=== PATIENT | male | born 1935 | race Caucasian/White ===

== ENCOUNTER 2017-03-02 11:14 | Day surgery (SDC) | payer MEDICARE, OTHER ==
[~2017-03-02 11:14] MED LIST: Lactated Ringers 1,000 ML IV SCH; Midazolam 1 MG/ML 2 ML SDV ONE; Propofol 200 MG/20 ML SDV ONE; Sodium Chloride 0.9% 10 ML Syringe FLUSH PRN; Sodium Chloride 0.9% 2.5 ML Syringe FLUSH PRN; fentaNYL 100 MCG/2 ML SDV ONE
--- NOTE | 2017-03-02 11:48 | PCM.PREANE ---
Preanesthetic Assessment - Anesthesia/Transfusion/Family Hx Anesthesia History: Prior Anesthesia Without Reaction Other Type of Anesthesia Reaction Comment: denies any known problem in past Family History of Anesthesia Reaction: No Transfusion History: No Prior Transfusion(s) - Review of Systems Neurological: Tremors - Physical Assessment NPO Status Date: 03/01/17 O2 Sat by Pulse Oximetry: 95 Respiratory Rate: 18 Vital Signs: Last Vital Signs Temp 35.6 C 03/02/17 11:45 Pulse 66 03/02/17 11:45 Resp 18 03/02/17 11:45 BP 125/93 H 03/02/17 11:45 Pulse Ox 95 03/02/17 11:45 Height: 1.78 m Weight: 141.067 kg ASA Class: 3 Mental Status: Alert & Oriented x3 Airway Class: Mallampati = 2 Dentition: Reports: Partial ROM/Head Extension: Full Lungs: Clear to Auscultation, Normal Respiratory Effort Cardiovascular: Regular Rate, Regular Rhythm - Allergies Allergies/Adverse Reactions: Allergies Allergy/AdvReac Type Severity Reaction Status Date / Time No Known Allergies Allergy Verified 02/27/17 13:23 - Anesthesia Plan Beta [place]: Metoprolol (has significant EDI, may need oral airway) - Acknowledgements Anesthesia Type Planned: MAC Pt an Appropriate Candidate for the Planned Anesthesia: Yes Alternatives and Risks of Anesthesia Discussed w Pt/Guardian: Yes Pt/Guardian Understands and Agrees with Anesthesia Plan: Yes PreAnesthesia Questionnaire HEENT History: Reports: Cataract, Hard of Hearing Other HEENT History: wears glasses, has upper and lower partial dentures, has bilateral hearing aides Cardiovascular History: Reports: Hypertension Other Cardiovascular History: patient reports occasion chest tightness but goes away quickly Respiratory History: Reports: Sleep Apnea Other Respiratory History: does not use CPAP Gastrointestinal History: Reports: Colon Polyp Genitourinary History: Reports: Prostate Disorder Other Genitourinary History: phimosis, urinary leakage Musculoskeletal History: Reports: Back Pain, Chronic Other Musculoskeletal History: Disk problems to low back, Benign Tremors. gets cortisone shots Neurological History: Reports: Head Trauma, Other (See Below) Other Neuro History: Essential tremor, head injury as a child Psychiatric History: Reports: None Endocrine/Metabolic History: Reports: Obesity/BMI 30+ Hematologic History: Reports: Anemia Immunologic History: Reports: None Oncologic (Cancer) History: Reports: Prostate Dermatologic History: Reports: Eczema Other Dermatologic History: Dry skin, sensitive skin - Past Surgical History HEENT Surgical History: Reports: Cataract Surgery GI Surgical History: Reports: Colonoscopy, Small Bowel Other GI Surgeries/Procedures: right Hemicolectomy Male Surgical History: Reports: Prostatectomy, Vasectomy Other Oncologic Surgeries/Procedures: prostatectomy - SUBSTANCE USE Smoking Status *Q: Former Smoker Tobacco Use Within Last Twelve Months: No Second Hand Smoke Exposure: No Days Per Week of Alcohol Use: 0 Recreational Drug Use History: No - HOME MEDS Home Medications: Home Meds Multivitamin [Multivitamins] 1 each PO DAILY 09/10/13 [History] Benazepril/Hydrochlorothiazide [Lotensin Hct 20-25 mg Tablet] 1 tab PO DAILY [History] amLODIPine Besylate [Amlodipine Besylate] 5 mg PO ACBREAKFAST 02/17/15 [History] Metoprolol Succinate 50 mg PO BID 02/27/17 [History] Zonisamide [Zonegran] 100 mg PO DAILY 02/27/17 [History] - CURRENT (IN HOUSE) MEDS Current Meds: Current Medications Lactated Ringer's (Ringers, Lactated) 1,000 mls @ 125 mls/hr IV ASDIRECTED BISHOP Last Admin: 03/02/17 11:43 Dose: 125 mls/hr Sodium Chloride (Saline Flush) 10 ml FLUSH ASDIRECTED PRN PRN Reason: Keep Vein Open Sodium Chloride (Saline Flush) 2.5 ml FLUSH ASDIRECTED PRN PRN Reason: Keep Vein Open Discontinued Medications Fentanyl (Sublimaze) Confirm Administered Dose 100 mcg .ROUTE .STK-MED ONE Stop: 03/02/17 07:19 Lidocaine HCl (Xylocaine-Mpf 1%) Confirm Administered Dose 5 ml .ROUTE .STK-MED ONE Stop: 03/02/17 07:20 Midazolam HCl (Versed 1 Mg/Ml) Confirm Administered Dose 2 mg .ROUTE .STK-MED ONE Stop: 03/02/17 07:19 Propofol (Diprivan 20 Ml) Confirm Administered Dose 200 mg .ROUTE .STK-MED ONE Stop: 03/02/17 07:19
--- NOTE | 2017-03-02 12:34 | PCM.OPNOTE ---
- General Post-Op/Procedure Note Date of Surgery/Procedure: 03/02/17 Operative Procedure(s): Colonoscopy Findings: Normal appearing anastomotic line. Proximal colon polyp at 100cm and sigmoid colon polyp at 30 cm. Pre Op Diagnosis: History of colon polyps requiring right hemicolectomy Post-Op Diagnosis: Proximal colon polyp, sigmoid colon polyp Anesthesia Technique: [facility] Primary Surgeon: Naima Winters Condition: Good
--- NOTE | 2017-03-02 12:51 | PCM.POSTAN ---
POST ANESTHESIA ASSESSMENT - MENTAL STATUS Mental Status: Alert, Oriented - RESPIRATORY Respiratory Status: Respiratory Rate WNL, Airway Patent, O2 Saturation Stable - CARDIOVASCULAR CV Status: Pulse Rate WNL, Blood Pressure Stable - GASTROINTESTINAL GI Status: No Symptoms - POST OP HYDRATION Hydration Status: Adequate & Stable
--- NOTE | 2017-03-02 12:52 | PCM48HPAN ---
Post Anesthesia Note - EVALUATION WITHIN 48HRS OF ANESTHETIC Vital Signs in Normal Range: Yes Patient Participated in Evaluation: Yes Respiratory Function Stable: Yes Airway Patent: Yes Cardiovascular Function Stable: Yes Hydration Status Stable: Yes Pain Control Satisfactory: Yes Nausea and Vomiting Control Satisfactory: Yes Mental Status Recovered: Yes
[2017-03-02 13:32] VITALS: BP 159/74
--- NOTE | 2017-03-03 17:03 | OR ---
SURGEON: YESENIA SARAVIA MD DATE OF PROCEDURE: 03/02/2017 PREOPERATIVE DIAGNOSIS: History of multiple colon polyps. POSTOPERATIVE DIAGNOSIS: Sigmoid colon polyp, proximal colon polyp. PROCEDURE PERFORMED: Diagnostic colonoscopy. INSTRUMENT USED: Olympus colonoscope. ANESTHESIA: MAC. EXTENT OF EXAM: To the small bowel colonic anastomosis. PREPARATION: Fair. LIMITATIONS: None. INDICATIONS: The patient is an 81-year-old male, who underwent a screening colonoscopy a couple of years ago, which was complicated by postoperative GI bleed. The patient was transferred to [place], where he underwent an emergent right hemicolectomy to control this bleeding. The patient was found to have multiple polyps within the right side of the colon. It is now time for the patient to have a followup colonoscopy and he has been doing well otherwise. He was cleared preoperatively to undergo procedure here. The patient and I discussed the procedure as well as expected perioperative course. I explained to him that should I discover a large polyp, I would not attempt any aggressive resections. The patient and I discussed the risks, including bleeding, infection, or damage to surrounding structures, including perforation. The patient verbalized understanding and wished to proceed. PROCEDURE IN DETAIL: The patient was brought to the endoscopy suite and placed in the left lateral decubitus position. A time-out was completed verifying the patient's name, age, date of , allergies, and procedure to be performed. Monitored anesthesia care was induced and continuous oxygen was provided via nasal cannula throughout the procedure. After adequate sedation was achieved, a digital rectal exam was performed. This exam was within normal limits. A well lubricated colonoscope was inserted in the rectum and advanced under direct visualization to the level of the colonic and small bowel anastomosis. This appeared normal and a photograph was taken. A biopsy was taken of the staple line to ensure that there was no evidence of recurrence. The scope was then fully withdrawn while examining the color, texture, anatomy, and integrity of mucosa from the cecum to the anal canal. The patient was found to have a small sessile polyp at approximately 100 cm. This was removed using a cold biopsy forceps and sent to pathology labeled as proximal colon polyp. Extra care was taken to ensure that the patient achieved adequate hemostasis. Once this was confirmed I continued my investigation. Another pedunculated polyp was found within the distal sigmoid colon at approximately 30 cm. This was easily removed using a cold biopsy forceps and sent to pathology. Again, I ensured hemostasis before continuing. The remainder of the colonoscopy was normal. The scope was brought into the rectum and retroflexed to allow visualization of the anal canal opening. This appeared normal and a photograph was taken. The scope was then straightened out and removed from the patient. Cecum to anus time was 16 minutes. The patient tolerated the procedure well and was taken to PACU in stable condition. ENDOSCOPIC DIAGNOSES: 1. Normal appearing anastomotic line. 2. Proximal colon polyp at 100 cm. 3. Sigmoid colon polyp. RECOMMENDATION: Follow up in clinic in 2 weeks. REJI RAYA /[id number]
== END 2017-03-02 13:27 | disposition home or self-care (01) ==
LOC: MW.SDS 11:14
PROVIDERS: ATTEND Surgery
DX: Z12.11 Encounter for screening for malignant neoplasm of colon (principal); D12.5 Benign neoplasm of sigmoid colon; D12.6 Benign neoplasm of colon, unspecified; Z86.010 Personal history of colon polyps; I10 Essential (primary) hypertension; E66.01 Morbid (severe) obesity due to excess calories; G47.33 Obstructive sleep apnea (adult) (pediatric); Z68.41 Body mass index [BMI] 40.0-44.9, adult; Z79.899 Other long term (current) drug therapy; Z98.890 Other specified postprocedural states; Z98.52 Vasectomy status
CPT/HCPCS: 45380; J2250; J3010; J7120; 00810; 88305; J2704

== ENCOUNTER 2018-12-24 13:42 | Emergency (ER) | payer OTHER, MEDICARE ==
[2018-12-24] MEDS ORDERED: Sodium Chloride 0.9% 10 ML Syringe FLUSH PRN (13:52)
[2018-12-24] MEDS ORDERED: Sodium Chloride 0.9% 2.5 ML Syringe FLUSH PRN (13:52)
--- NOTE | 2018-12-24 13:56 | EDM.PDOC ---
ED HPI GENERAL MEDICAL PROBLEM - General Chief Complaint: Respiratory Problem Stated Complaint: SHORTNESS OF BREATH AND WEAKNESS Time Seen by Provider: 12/24/18 13:49 - History of Present Illness INITIAL COMMENTS - FREE TEXT/NARRATIVE: HISTORY AND PHYSICAL: History of present illness: Patient's an 83-year-old white male who was sent from the [place] after he was therefore clinic appointment and noted to have abnormal lab diagnostic results. Patient has concern of generalized weakness and shortness of breath he has had occasional chest pain he somewhat poor historian he denies chest pain at this time there's been no reported fever chills nausea or vomiting Review of systems: As per history of present illness and below otherwise all systems reviewed and negative. Past medical history: As per history of present illness and as reviewed below otherwise noncontributory. Surgical history: As per history of present illness and as reviewed below otherwise noncontributory. Social history: No reported history of drug or alcohol abuse. Family history: As per history of present illness and as reviewed below otherwise noncontributory. Physical exam: HEENT: Atraumatic, normocephalic, pupils reactive, negative for conjunctival pallor or scleral icterus, mucous membranes moist, throat clear, neck supple, nontender, trachea midline. Lungs: Slightly coarse, breath sounds equal bilaterally, chest nontender. Heart: S1S2, regular, negative for clicks, rubs, or JVD. Abdomen: Soft, nondistended, nontender. Negative for masses or hepatosplenomegaly. Negative for costovertebral tenderness. Pelvis: Stable nontender. Genitourinary: Deferred. Rectal: Deferred. Extremities: Atraumatic, negative for cords or calf pain. Neurovascular unremarkable. Neuro: Awake, alert, oriented. Follows commands and moves all extremities limited grossly nonfocal exam Diagnostics: CBC CMP PT/INR lactic acid UA blood culture 2 chest x-ray EKG Therapeutics: Saline at 125 mL an hour director cardiac pulse oximetry Impression: #1 generalized weakness #2 dyspnea #3 thrombocytopenia #4 rule out leukemia Definitive disposition and diagnosis as appropriate pending reevaluation and review of above. - Related Data Allergies Allergy/AdvReac Type Severity Reaction Status Date / Time No Known Allergies Allergy Verified 12/24/18 13:49 Home Meds: Home Meds Multivitamin [Multivitamins] 1 each PO DAILY 09/10/13 [History] Benazepril/Hydrochlorothiazide [Lotensin Hct 20-25 mg Tablet] 1 tab PO DAILY [History] amLODIPine Besylate [Amlodipine Besylate] 5 mg PO ACBREAKFAST 02/17/15 [History] Metoprolol Succinate 50 mg PO BID 02/27/17 [History] Zonisamide [Zonegran] 100 mg PO DAILY 02/27/17 [History] Past Medical History HEENT History: Reports: Cataract, Hard of Hearing Other HEENT History: wears glasses, has upper and lower partial dentures, has bilateral hearing aides Cardiovascular History: Reports: Hypertension Other Cardiovascular History: patient reports occasion chest tightness but goes away quickly Respiratory History: Reports: Sleep Apnea Other Respiratory History: does not use CPAP Gastrointestinal History: Reports: Colon Polyp Genitourinary History: Reports: Prostate Disorder Other Genitourinary History: phimosis, urinary leakage Musculoskeletal History: Reports: Back Pain, Chronic Other Musculoskeletal History: Disk problems to low back, Benign Tremors. gets cortisone shots Neurological History: Reports: Head Trauma, Other (See Below) Other Neuro History: Essential tremor, head injury as a child Psychiatric History: Reports: None Endocrine/Metabolic History: Reports: Obesity/BMI 30+ Hematologic History: Reports: Anemia Immunologic History: Reports: None Oncologic (Cancer) History: Reports: Prostate Dermatologic History: Reports: Eczema Other Dermatologic History: Dry skin, sensitive skin - Past Surgical History Head Surgeries/Procedures: Reports: None HEENT Surgical History: Reports: Cataract Surgery GI Surgical History: Reports: Colonoscopy, Small Bowel Other GI Surgeries/Procedures: right Hemicolectomy Male Surgical History: Reports: Prostatectomy, Vasectomy Other Male Surgeries/Procedures: hx radiation therapy for prostate cancer Other Oncologic Surgeries/Procedures: prostatectomy ED ROS GENERAL - Review of Systems Review Of Systems: ROS reveals no pertinent complaints other than HPI. ED EXAM, GENERAL - Physical Exam Exam: See Below (See dictation) Course - Vital Signs Last Recorded V/S: Last Vital Signs Temp 36.2 C 12/24/18 13:50 Pulse 78 12/24/18 13:50 Resp 22 H 12/24/18 13:50 BP 132/71 12/24/18 13:50 Pulse Ox 95 12/24/18 13:50 - Orders/Labs/Meds Orders: Active Orders 24 hr Category Date Time Status Patient Status [ADT] Stat ADT 12/24/18 15:35 Active Cardiac Monitoring [RC] . DIRECTED Care 12/24/18 13:51 Active EKG Documentation Completion [RC] STAT Care 12/24/18 13:51 Active Oxygen Therapy, ED [RC] ASDIRECTED Care 12/24/18 13:51 Active Pulse Oximetry [RC] ASDIRECTED Care 12/24/18 13:51 Active CULTURE BLOOD [BC] Stat Lab 12/24/18 14:04 Results CULTURE BLOOD [BC] Stat Lab 12/24/18 14:12 Received Sodium Chloride 0.9% [Normal Saline] 1,000 ml Med 12/24/18 14:00 Active IV STAT Sodium Chloride 0.9% [Saline Flush] Med 12/24/18 13:52 Active 10 ml FLUSH ASDIRECTED PRN Sodium Chloride 0.9% [Saline Flush] Med 12/24/18 13:52 Active 2.5 ml FLUSH ASDIRECTED PRN Blood Culture x2 Reflex Set [OM.PC] Stat Oth 12/24/18 13:52 Ordered Saline Lock Insert [OM.PC] Stat Oth 12/24/18 13:51 Ordered Medication Orders Sodium Chloride (Normal Saline) 1,000 mls @ 125 mls/hr IV STAT BISHOP Last Admin: 12/24/18 14:17 Dose: 125 mls/hr Sodium Chloride (Saline Flush) 10 ml FLUSH ASDIRECTED PRN PRN Reason: Keep Vein Open Sodium Chloride (Saline Flush) 2.5 ml FLUSH ASDIRECTED PRN PRN Reason: Keep Vein Open Labs: Laboratory Tests 12/24/18 12/24/18 12/24/18 Range/Units 14:08 14:12 14:12 WBC 8.40 (4.0-11.0) K/uL RBC 3.97 L (4.50-5.90) M/uL Hgb 11.9 L (13.0-17.0) g/dL Hct 36.0 L (38.0-50.0) % MCV 90.7 (80.0-98.0) fL MCH 30.0 (27.0-32.0) pg MCHC 33.1 (31.0-37.0) g/dL RDW Std Deviation 63.2 H (28.0-62.0) fl RDW Coeff of Jamie 19 H (11.0-15.0) % Plt Count 61 L (150-400) K/uL Add Manual Diff YES Neutrophils % (Manual) 29 L (48.0-80.0) % Band Neutrophils % 4 % Lymphocytes % (Manual) 37 (16.0-40.0) % Monocytes % (Manual) 22 H (0.0-15.0) % Basophils % (Manual) 1 (0.0-1.5) % Metamyelocytes % 3 % Blast Cells % 4 % Nucleated RBC % 0.6 /100WBC Absolute Seg Neuts 2.4 (1.4-5.7) Band Neutrophils # 0.3 Lymphocytes # (Manual) 3.1 H (0.6-2.4) Monocytes # (Manual) 1.8 H (0.0-0.8) Basophils # (Manual) 0.1 (0.0-0.1) Absolute Metamyelocyte 0.3 Nucleated RBCs 1 % Nucleated RBCs # 0 K/uL Absolute Blast Cells 0.3 INR 1.13 ABG pH (7.35-7.45) ABG pCO2 (35-45) mmHG ABG pO2 (75-100) mmHG ABG HCO3 (22-26) mEq/L ABG Total CO2 ABG Base Excess (-2.0-2.0) Lactate (0.20-2.00) mmol/L Sodium 141 (136-148) mmol/L Potassium 4.0 (3.5-5.1) mmol/L Chloride 104 (98-107) mmol/L Carbon Dioxide 26.4 (21.0-32.0) mmol/L BUN 27 H (7.0-18.0) mg/dL Creatinine 1.3 (0.8-1.3) mg/dL Est Cr Clr Drug Dosing 45.24 mL/min Estimated GFR (MDRD) 52.9 ml/min Glucose 122 H (74-106) mg/dL Calcium 9.0 (8.5-10.1) mg/dL Total Bilirubin 1.1 H (0.2-1.0) mg/dL AST 28 (15-37) IU/L ALT 19 (14-63) IU/L Alkaline Phosphatase 97 (46-116) U/L B-Natriuretic Peptide (<100) PG/ML Total Protein 7.1 (6.4-8.2) g/dL Albumin 3.4 (3.4-5.0) g/dL Globulin 3.7 (2.6-4.0) g/dL Albumin/Globulin Ratio 0.9 (0.9-1.6) Urine Color Urine Appearance Urine pH (5.0-8.0) Ur Specific [place] (1.001-1.035) Urine Protein (NEGATIVE) mg/dL Urine Glucose (UA) (NEGATIVE) mg/dL Urine Ketones (NEGATIVE) mg/dL Urine Occult Blood (NEGATIVE) Urine Nitrite (NEGATIVE) Urine Bilirubin (NEGATIVE) Urine Ictotest Urine Urobilinogen (<2.0) EU/dL Ur Leukocyte Esterase (NEGATIVE) Urine RBC (0-2/HPF) Urine WBC (0-5/HPF) Ur Epithelial Cells (NONE-FEW) Urine Bacteria (NEGATIVE) Urine Mucus (NONE-MOD) 12/24/18 12/24/18 12/24/18 Range/Units 14:12 14:12 14:21 WBC (4.0-11.0) K/uL RBC (4.50-5.90) M/uL Hgb (13.0-17.0) g/dL Hct (38.0-50.0) % MCV (80.0-98.0) fL MCH (27.0-32.0) pg MCHC (31.0-37.0) g/dL RDW Std Deviation (28.0-62.0) fl RDW Coeff of Jamie (11.0-15.0) % Plt Count (150-400) K/uL Add Manual Diff Neutrophils % (Manual) (48.0-80.0) % Band Neutrophils % % Lymphocytes % (Manual) (16.0-40.0) % Monocytes % (Manual) (0.0-15.0) % Basophils % (Manual) (0.0-1.5) % Metamyelocytes % % Blast Cells % % Nucleated RBC % /100WBC Absolute Seg Neuts (1.4-5.7) Band Neutrophils # Lymphocytes # (Manual) (0.6-2.4) Monocytes # (Manual) (0.0-0.8) Basophils # (Manual) (0.0-0.1) Absolute Metamyelocyte Nucleated RBCs % Nucleated RBCs # K/uL Absolute Blast Cells INR ABG pH 7.526 H (7.35-7.45) ABG pCO2 35 (35-45) mmHG ABG pO2 59 L (75-100) mmHG ABG HCO3 29 H (22-26) mEq/L ABG Total CO2 25.9 ABG Base Excess 5.8 H (-2.0-2.0) Lactate 1.2 (0.20-2.00) mmol/L Sodium (136-148) mmol/L Potassium (3.5-5.1) mmol/L Chloride (98-107) mmol/L Carbon Dioxide (21.0-32.0) mmol/L BUN (7.0-18.0) mg/dL Creatinine (0.8-1.3) mg/dL Est Cr Clr Drug Dosing mL/min Estimated GFR (MDRD) ml/min Glucose (74-106) mg/dL Calcium (8.5-10.1) mg/dL Total Bilirubin (0.2-1.0) mg/dL AST (15-37) IU/L ALT (14-63) IU/L Alkaline Phosphatase (46-116) U/L B-Natriuretic Peptide 44 (<100) PG/ML Total Protein (6.4-8.2) g/dL Albumin (3.4-5.0) g/dL Globulin (2.6-4.0) g/dL Albumin/Globulin Ratio (0.9-1.6) Urine Color Urine Appearance Urine pH (5.0-8.0) Ur Specific [place] (1.001-1.035) Urine Protein (NEGATIVE) mg/dL Urine Glucose (UA) (NEGATIVE) mg/dL Urine Ketones (NEGATIVE) mg/dL Urine Occult Blood (NEGATIVE) Urine Nitrite (NEGATIVE) Urine Bilirubin (NEGATIVE) Urine Ictotest Urine Urobilinogen (<2.0) EU/dL Ur Leukocyte Esterase (NEGATIVE) Urine RBC (0-2/HPF) Urine WBC (0-5/HPF) Ur Epithelial Cells (NONE-FEW) Urine Bacteria (NEGATIVE) Urine Mucus (NONE-MOD) 12/24/18 Range/Units 15:49 WBC (4.0-11.0) K/uL RBC (4.50-5.90) M/uL Hgb (13.0-17.0) g/dL Hct (38.0-50.0) % MCV (80.0-98.0) fL MCH (27.0-32.0) pg MCHC (31.0-37.0) g/dL RDW Std Deviation (28.0-62.0) fl RDW Coeff of Jamie (11.0-15.0) % Plt Count (150-400) K/uL Add Manual Diff Neutrophils % (Manual) (48.0-80.0) % Band Neutrophils % % Lymphocytes % (Manual) (16.0-40.0) % Monocytes % (Manual) (0.0-15.0) % Basophils % (Manual) (0.0-1.5) % Metamyelocytes % % Blast Cells % % Nucleated RBC % /100WBC Absolute Seg Neuts (1.4-5.7) Band Neutrophils # Lymphocytes # (Manual) (0.6-2.4) Monocytes # (Manual) (0.0-0.8) Basophils # (Manual) (0.0-0.1) Absolute Metamyelocyte Nucleated RBCs % Nucleated RBCs # K/uL Absolute Blast Cells INR ABG pH (7.35-7.45) ABG pCO2 (35-45) mmHG ABG pO2 (75-100) mmHG ABG HCO3 (22-26) mEq/L ABG Total CO2 ABG Base Excess (-2.0-2.0) Lactate (0.20-2.00) mmol/L Sodium (136-148) mmol/L Potassium (3.5-5.1) mmol/L Chloride (98-107) mmol/L Carbon Dioxide (21.0-32.0) mmol/L BUN (7.0-18.0) mg/dL Creatinine (0.8-1.3) mg/dL Est Cr Clr Drug Dosing mL/min Estimated GFR (MDRD) ml/min Glucose (74-106) mg/dL Calcium (8.5-10.1) mg/dL Total Bilirubin (0.2-1.0) mg/dL AST (15-37) IU/L ALT (14-63) IU/L Alkaline Phosphatase (46-116) U/L B-Natriuretic Peptide (<100) PG/ML Total Protein (6.4-8.2) g/dL Albumin (3.4-5.0) g/dL Globulin (2.6-4.0) g/dL Albumin/Globulin Ratio (0.9-1.6) Urine Color DARK YELLOW Urine Appearance CLOUDY Urine pH 6.0 (5.0-8.0) Ur Specific [place] 1.025 (1.001-1.035) Urine Protein 100 H (NEGATIVE) mg/dL Urine Glucose (UA) NEGATIVE (NEGATIVE) mg/dL Urine Ketones NEGATIVE (NEGATIVE) mg/dL Urine Occult Blood LARGE H (NEGATIVE) Urine Nitrite NEGATIVE (NEGATIVE) Urine Bilirubin SMALL H (NEGATIVE) Urine Ictotest NEGATIVE Urine Urobilinogen 1.0 (<2.0) EU/dL Ur Leukocyte Esterase NEGATIVE (NEGATIVE) Urine RBC TOO NUMEROUS TO CT (0-2/HPF) Urine WBC 1-3 (0-5/HPF) Ur Epithelial Cells FEW (NONE-FEW) Urine Bacteria FEW (NEGATIVE) Urine Mucus LIGHT (NONE-MOD) Meds: Medications Generic Name Dose Route Start Last Admin Trade Name Freq PRN Reason Stop Dose Admin Sodium Chloride 1,000 mls @ 125 mls/hr 12/24/18 14:00 12/24/18 14:17 Normal Saline IV 125 mls/hr STAT BISHOP Administration Sodium Chloride 10 ml 12/24/18 13:52 Saline Flush FLUSH ASDIRECTED PRN Keep Vein Open Sodium Chloride 2.5 ml 12/24/18 13:52 Saline Flush FLUSH ASDIRECTED PRN Keep Vein Open Departure - Departure Time of Disposition: 15:33 Disposition: DC/Tfer to Acute Hospital 02 Condition: Good Clinical Impression: Weakness, Dyspnea, Thrombocytopenia - Discharge Information Referrals: PCP,Unknown [Primary Care Provider] - Forms: ED Department Discharge - My Orders Last 24 Hours: My Active Orders 12/24/18 13:51 Cardiac Monitoring [RC] . DIRECTED EKG Documentation Completion [RC] STAT Oxygen Therapy, ED [RC] ASDIRECTED Pulse Oximetry [RC] ASDIRECTED Saline Lock Insert [OM.PC] Stat 12/24/18 13:52 Sodium Chloride 0.9% [Saline Flush] 10 ml FLUSH ASDIRECTED PRN Sodium Chloride 0.9% [Saline Flush] 2.5 ml FLUSH ASDIRECTED PRN Blood Culture x2 Reflex Set [OM.PC] Stat 12/24/18 14:00 Sodium Chloride 0.9% [Normal Saline] 1,000 ml IV STAT 12/24/18 14:04 CULTURE BLOOD [BC] Stat 12/24/18 14:12 CULTURE BLOOD [BC] Stat 12/24/18 15:35 Patient Status [ADT] Stat - Assessment/Plan Last 24 Hours: My Active Orders 12/24/18 13:51 Cardiac Monitoring [RC] . DIRECTED EKG Documentation Completion [RC] STAT Oxygen Therapy, ED [RC] ASDIRECTED Pulse Oximetry [RC] ASDIRECTED Saline Lock Insert [OM.PC] Stat 12/24/18 13:52 Sodium Chloride 0.9% [Saline Flush] 10 ml FLUSH ASDIRECTED PRN Sodium Chloride 0.9% [Saline Flush] 2.5 ml FLUSH ASDIRECTED PRN Blood Culture x2 Reflex Set [OM.PC] Stat 12/24/18 14:00 Sodium Chloride 0.9% [Normal Saline] 1,000 ml IV STAT 12/24/18 14:04 CULTURE BLOOD [BC] Stat 12/24/18 14:12 CULTURE BLOOD [BC] Stat 12/24/18 15:35 Patient Status [ADT] Stat
[2018-12-24] MEDS ORDERED: Sodium Chloride 0.9% 1,000 ML IV SCH (14:00)
--- NOTE | 2018-12-24 15:19 | CR ---
EXAMINATION: Portable chest radiograph. HISTORY: Pain. FINDINGS: The trachea is midline. The cardiomediastinal silhouette is within normal limits. No pulmonary infiltrates, effusions or pneumothorax. Osseous structures appear unremarkable. IMPRESSION: No acute cardiopulmonary process.
[2018-12-24 22:10] VITALS: BP 124/56
== END 2018-12-24 17:25 ==
LOC: MW.ED 13:42
DX: R53.1 Weakness (principal); R06.02 Shortness of breath; D69.6 Thrombocytopenia, unspecified; I10 Essential (primary) hypertension; Z79.899 Other long term (current) drug therapy
CPT/HCPCS: 36415; 36600; 71045; 80053; 81001; 82803; 83605; 83880; 85025; 85610; 87040; 93005; 96360; 96361; 99285; J7040; 99284

== ENCOUNTER 2019-01-17 07:46 | Observation (INO) | payer MEDICARE, OTHER ==
[2019-01-17] MEDS ORDERED: Sodium Chloride 0.9% 2.5 ML Syringe FLUSH PRN (08:01)
[2019-01-17] MEDS ORDERED: Sodium Chloride 0.9% 10 ML Syringe FLUSH PRN (08:01)
--- NOTE | 2019-01-17 08:01 | EDM.PDOC ---
ED HPI GENERAL MEDICAL PROBLEM - General Chief Complaint: General Stated Complaint: LETHARGIC Time Seen by Provider: 01/17/19 07:56 History Limitations: Reports: Altered Mental Status - History of Present Illness INITIAL COMMENTS - FREE TEXT/NARRATIVE: History of present illness: []Patient arrived by [employer] [facility] with increasing lethargy in the past month. He' s been confused and unable to walk recently. He's not had any fevers, vomiting or diarrhea. Review of systems: As per history of present illness and below otherwise all systems reviewed and negative. Past medical history: As per history of present illness and as reviewed below otherwise noncontributory. Surgical history: As per history of present illness and as reviewed below otherwise noncontributory. Social history: No reported history of drug or alcohol abuse. Family history: As per history of present illness and as reviewed below otherwise noncontributory. Physical exam: General: Well developed, well nourished moaning in pain, pale HEENT: Atraumatic, normocephalic, pupils reactive, negative for conjunctival pallor or scleral icterus, mucous membranes dry, throat clear, neck supple, nontender, trachea midline. Lungs: Clear to auscultation, breath sounds equal bilaterally, chest nontender. Heart: S1S2, regular, negative for clicks, rubs, or JVD. Abdomen: NABS, Soft, nondistended, diffuse tenderness without rebound or guarding. Negative for masses or hepatosplenomegaly. Negative for costovertebral tenderness. Pelvis: Stable nontender. Genitourinary: Deferred. Rectal: Deferred. Extremities: Atraumatic. Neurovascular unremarkable. Neuro: Awake, Exam nonfocal. Skin:warm and dry Diagnostics: CBC, chemistry, type and screen, blood cultures, EKG chest x-ray Therapeutics: Patient was hydrated while in the ED ED Course: Patient's labs are severely abnormal and is a DNR DNI/for measures only. Dr. Dubon initially agreed for admission but then held off for possible hospice care and return to [place]. He was unable to accomplish this today so patient will be admitted for comfort care Impression: Anemia, renal failure, dehydration Prescriptions: None Plan: Admit Definitive disposition and diagnosis as appropriate pending reevaluation and review of above. - Related Data Allergies Allergy/AdvReac Type Severity Reaction Status Date / Time No Known Allergies Allergy Verified 01/17/19 07:51 Home Meds: Home Meds Multivitamin [Multivitamins] 1 each PO DAILY 09/10/13 [History] Benazepril/Hydrochlorothiazide [Lotensin Hct 20-25 mg Tablet] 1 tab PO DAILY [History] amLODIPine Besylate [Amlodipine Besylate] 5 mg PO BEDTIME 02/17/15 [History] Metoprolol Succinate 50 mg PO BID 02/27/17 [History] Acetaminophen [Tylenol Arthritis Pain] 1 tab PO Q4HR PRN 01/17/19 [History] Furosemide [Lasix] 1 tab PO DAILY 01/17/19 [History] hydroCHLOROthiazide [Hydrochlorothiazide] 1 tab PO DAILY 01/17/19 [History] Past Medical History HEENT History: Reports: Cataract, Hard of Hearing Other HEENT History: wears glasses, has upper and lower partial dentures, has bilateral hearing aides Cardiovascular History: Reports: Hypertension Other Cardiovascular History: patient reports occasion chest tightness but goes away quickly Respiratory History: Reports: Sleep Apnea Other Respiratory History: does not use CPAP Gastrointestinal History: Reports: Colon Polyp Genitourinary History: Reports: Prostate Disorder Other Genitourinary History: phimosis, urinary leakage Musculoskeletal History: Reports: Back Pain, Chronic Other Musculoskeletal History: Disk problems to low back, Benign Tremors. gets cortisone shots Neurological History: Reports: Head Trauma, Other (See Below) Other Neuro History: Essential tremor, head injury as a child Psychiatric History: Reports: None Endocrine/Metabolic History: Reports: Obesity/BMI 30+ Hematologic History: Reports: Anemia Immunologic History: Reports: None Oncologic (Cancer) History: Reports: Prostate Dermatologic History: Reports: Eczema Other Dermatologic History: Dry skin, sensitive skin - Infectious Disease History Infectious Disease History: Reports: Other (See Below) Other Infectious Disease History: pt unsure - Past Surgical History Head Surgeries/Procedures: Reports: None HEENT Surgical History: Reports: Cataract Surgery GI Surgical History: Reports: Colonoscopy, Small Bowel Other GI Surgeries/Procedures: right Hemicolectomy Male Surgical History: Reports: Prostatectomy, Vasectomy Other Male Surgeries/Procedures: hx radiation therapy for prostate cancer Other Oncologic Surgeries/Procedures: prostatectomy Social & Family History - Caffeine Use Caffeine Use: Reports: Soda ED ROS GENERAL - Review of Systems Review Of Systems: See Below ED EXAM, GENERAL - Physical Exam Exam: See Below Course - Vital Signs Last Recorded V/S: Last Vital Signs Temp 97.2 F 01/17/19 11:31 Pulse 74 01/17/19 11:31 Resp 22 H 01/17/19 11:31 BP 95/50 L 01/17/19 11:31 Pulse Ox 95 01/17/19 10:53 - Orders/Labs/Meds Orders: Active Orders 24 hr Category Date Time Status EKG Documentation Completion [RC] STAT Care 01/17/19 08:01 Active CULTURE BLOOD [BC] Stat Lab 01/17/19 08:20 Received CULTURE BLOOD [BC] Stat Lab 01/17/19 08:35 Received RED BLOOD CELLS LP [BBK] Stat Lab 01/17/19 09:16 Results TYPE AND SCREEN [BBK] Stat Lab 01/17/19 09:16 Results Sodium Chloride 0.9% [Saline Flush] Med 01/17/19 08:01 Active 10 ml FLUSH ASDIRECTED PRN Sodium Chloride 0.9% [Saline Flush] Med 01/17/19 08:01 Active 2.5 ml FLUSH ASDIRECTED PRN Blood Culture x2 Reflex Set [OM.PC] Stat Oth 01/17/19 08:01 Ordered Saline Lock Insert [OM.PC] Stat Oth 01/17/19 08:01 Ordered Medication Orders Hyoscyamine (Hyomax-Sl) 0.125 mg SL Q4H PRN PRN Reason: secretions Lorazepam (Ativan) 1 mg PO Q4H PRN PRN Reason: anxiety/agitation Morphine Sulfate (Morphine 10 Mg/0.5 Ml Oral Syringe) 5 mg SL Q1H PRN PRN Reason: pain/SOB/restlessness Morphine Sulfate (Morphine) 4 mg IVPUSH Q2H PRN PRN Reason: severe pain, agitation Last Admin: 01/17/19 12:59 Dose: 4 mg Ondansetron HCl (Zofran) 4 mg IVPUSH Q4H PRN PRN Reason: Nausea Sodium Chloride (Saline Flush) 10 ml FLUSH ASDIRECTED PRN PRN Reason: Keep Vein Open Last Admin: 01/17/19 08:42 Dose: 10 ml Sodium Chloride (Saline Flush) 2.5 ml FLUSH ASDIRECTED PRN PRN Reason: Keep Vein Open Last Admin: 01/17/19 08:42 Dose: 2.5 ml Labs: Laboratory Tests 01/17/19 01/17/19 01/17/19 Range/Units 08:20 08:20 08:20 WBC 8.74 (4.0-11.0) K/uL RBC 2.09 L (4.50-5.90) M/uL Hgb 6.0 L (13.0-17.0) g/dL Hct 18.5 L (38.0-50.0) % MCV 88.5 (80.0-98.0) fL MCH 28.7 (27.0-32.0) pg MCHC 32.4 (31.0-37.0) g/dL RDW Std Deviation 63.1 H (28.0-62.0) fl RDW Coeff of Jamie 20 H (11.0-15.0) % Plt Count 43 L (150-400) K/uL MPV 10.40 (7.40-12.00) fL Add Manual Diff YES Neutrophils % (Manual) 37 L (48.0-80.0) % Band Neutrophils % 7 % Lymphocytes % (Manual) 31 (16.0-40.0) % Monocytes % (Manual) 15 (0.0-15.0) % Metamyelocytes % 3 % Myelocytes % 1 % Blast Cells % 6 % Nucleated RBC % 0.0 /100WBC Absolute Seg Neuts 3.2 (1.4-5.7) Band Neutrophils # 0.6 Lymphocytes # (Manual) 2.7 H (0.6-2.4) Monocytes # (Manual) 1.3 H (0.0-0.8) Absolute Metamyelocyte 0.3 Absolute Myelocytes 0.1 Nucleated RBCs # 0 K/uL Absolute Blast Cells 0.5 Platelet Estimate DECREASED Lactate 1.4 (0.20-2.00) mmol/L Sodium 141 (136-148) mmol/L Potassium 4.8 (3.5-5.1) mmol/L Chloride 102 (98-107) mmol/L Carbon Dioxide 21.4 (21.0-32.0) mmol/L BUN 204 H (7.0-18.0) mg/dL Creatinine 5.3 H (0.8-1.3) mg/dL Est Cr Clr Drug Dosing TNP Estimated GFR (MDRD) 10.4 ml/min Glucose 161 H (74-106) mg/dL Calcium 8.6 (8.5-10.1) mg/dL Total Bilirubin 0.8 (0.2-1.0) mg/dL AST 39 H (15-37) IU/L ALT 18 (14-63) IU/L Alkaline Phosphatase 104 (46-116) U/L Total Protein 7.0 (6.4-8.2) g/dL Albumin 3.0 L (3.4-5.0) g/dL Globulin 4.0 (2.6-4.0) g/dL Albumin/Globulin Ratio 0.8 L (0.9-1.6) Blood Type Antibody Screen Crossmatch 01/17/19 Range/Units 09:16 WBC (4.0-11.0) K/uL RBC (4.50-5.90) M/uL Hgb (13.0-17.0) g/dL Hct (38.0-50.0) % MCV (80.0-98.0) fL MCH (27.0-32.0) pg MCHC (31.0-37.0) g/dL RDW Std Deviation (28.0-62.0) fl RDW Coeff of Jamie (11.0-15.0) % Plt Count (150-400) K/uL MPV (7.40-12.00) fL Add Manual Diff Neutrophils % (Manual) (48.0-80.0) % Band Neutrophils % % Lymphocytes % (Manual) (16.0-40.0) % Monocytes % (Manual) (0.0-15.0) % Metamyelocytes % % Myelocytes % % Blast Cells % % Nucleated RBC % /100WBC Absolute Seg Neuts (1.4-5.7) Band Neutrophils # Lymphocytes # (Manual) (0.6-2.4) Monocytes # (Manual) (0.0-0.8) Absolute Metamyelocyte Absolute Myelocytes Nucleated RBCs # K/uL Absolute Blast Cells Platelet Estimate Lactate (0.20-2.00) mmol/L Sodium (136-148) mmol/L Potassium (3.5-5.1) mmol/L Chloride (98-107) mmol/L Carbon Dioxide (21.0-32.0) mmol/L BUN (7.0-18.0) mg/dL Creatinine (0.8-1.3) mg/dL Est Cr Clr Drug Dosing Estimated GFR (MDRD) ml/min Glucose (74-106) mg/dL Calcium (8.5-10.1) mg/dL Total Bilirubin (0.2-1.0) mg/dL AST (15-37) IU/L ALT (14-63) IU/L Alkaline Phosphatase (46-116) U/L Total Protein (6.4-8.2) g/dL Albumin (3.4-5.0) g/dL Globulin (2.6-4.0) g/dL Albumin/Globulin Ratio (0.9-1.6) Blood Type O POSITIVE Antibody Screen NEGATIVE Crossmatch See Detail Meds: Medications Generic Name Dose Route Start Last Admin Trade Name Freq PRN Reason Stop Dose Admin Hyoscyamine 0.125 mg 01/17/19 11:39 Hyomax-Sl SL Q4H PRN secretions Lorazepam 1 mg 01/17/19 11:39 Ativan PO Q4H PRN anxiety/agitation Morphine Sulfate 5 mg 01/17/19 11:39 Morphine 10 Mg/0.5 Ml Oral Syringe SL Q1H PRN pain/SOB/restlessness Morphine Sulfate 4 mg 01/17/19 12:06 01/17/19 12:59 Morphine IVPUSH 4 mg Q2H PRN Administration severe pain, agitation Ondansetron HCl 4 mg 01/17/19 11:39 Zofran IVPUSH Q4H PRN Nausea Sodium Chloride 10 ml 01/17/19 08:01 01/17/19 08:42 Saline Flush FLUSH 10 ml ASDIRECTED PRN Administration Keep Vein Open Sodium Chloride 2.5 ml 01/17/19 08:01 01/17/19 08:42 Saline Flush FLUSH 2.5 ml ASDIRECTED PRN Administration Keep Vein Open Discontinued Medications Generic Name Dose Route Start Last Admin Trade Name Freq PRN Reason Stop Dose Admin Fentanyl 25 mcg 01/17/19 08:10 01/17/19 08:41 Sublimaze IVPUSH 01/17/19 08:11 25 mcg ONETIME ONE Administration Fentanyl 25 mcg 01/17/19 10:13 01/17/19 10:21 Fentanyl IVPUSH 01/17/19 10:14 Not Given ONETIME ONE Fentanyl 25 mcg 01/17/19 10:16 01/17/19 10:20 Sublimaze IVPUSH 01/17/19 10:17 25 mcg ONETIME ONE Administration Sodium Chloride 1,000 mls @ 999 mls/hr 01/17/19 08:08 01/17/19 08:13 Normal Saline IV 01/17/19 09:08 999 mls/hr .Bolus ONE Administration Morphine Sulfate 2 mg 01/17/19 10:54 01/17/19 11:03 Morphine IVPUSH 01/17/19 10:55 2 mg ONETIME ONE Administration Ondansetron HCl 4 mg 01/17/19 08:10 01/17/19 08:41 Zofran IVPUSH 01/17/19 08:11 4 mg ONETIME ONE Administration Departure - Departure Time of Disposition: 11:00 Disposition: Refer to Observation Clinical Impression: Anemia Qualifiers: Anemia type: unspecified type Qualified Code(s): D64.9 - Anemia, unspecified - Discharge Information *PRESCRIPTION DRUG MONITORING PROGRAM REVIEWED*: Not Applicable *COPY OF PRESCRIPTION DRUG MONITORING REPORT IN PATIENT FAITH: Not Applicable - My Orders Last 24 Hours: My Active Orders 01/17/19 08:01 EKG Documentation Completion [RC] STAT Sodium Chloride 0.9% [Saline Flush] 10 ml FLUSH ASDIRECTED PRN Sodium Chloride 0.9% [Saline Flush] 2.5 ml FLUSH ASDIRECTED PRN Blood Culture x2 Reflex Set [OM.PC] Stat Saline Lock Insert [OM.PC] Stat 01/17/19 08:20 CULTURE BLOOD [BC] Stat 01/17/19 08:35 CULTURE BLOOD [BC] Stat 01/17/19 09:16 RED BLOOD CELLS LP [BBK] Stat TYPE AND SCREEN [BBK] Stat - Assessment/Plan Last 24 Hours: My Active Orders 01/17/19 08:01 EKG Documentation Completion [RC] STAT Sodium Chloride 0.9% [Saline Flush] 10 ml FLUSH ASDIRECTED PRN Sodium Chloride 0.9% [Saline Flush] 2.5 ml FLUSH ASDIRECTED PRN Blood Culture x2 Reflex Set [OM.PC] Stat Saline Lock Insert [OM.PC] Stat 01/17/19 08:20 CULTURE BLOOD [BC] Stat 01/17/19 08:35 CULTURE BLOOD [BC] Stat 01/17/19 09:16 RED BLOOD CELLS LP [BBK] Stat TYPE AND SCREEN [BBK] Stat
[2019-01-17] MEDS ORDERED: Sodium Chloride 0.9% 1,000 ML IV ONE (08:08)
[2019-01-17] MEDS ORDERED: fentaNYL 100 MCG/2 ML SDV IVPUSH ONE ×2 (08:10→10:16)
[2019-01-17] MEDS ORDERED: Ondansetron 4 MG/2 ML SDV IVPUSH ONE (08:10)
[2019-01-17 08:52] LABS: CHLORIDE,CL 102 mmol/L (98-107); SODIUM,NA 141 mmol/L (136-148)
--- NOTE | 2019-01-17 09:31 | CR ---
INDICATION: Chest pain. Shortness breath. COMPARISON: Portable chest dated 12/24/2018. TECHNIQUE: Portable chest performed at 8:54 a.m. FINDINGS: As compared to the recent exam dated 12/24/2018 there has been development of pulmonary vascular congestion and increase in size of the cardiac silhouette. There is no evidence of pleural fluid. There is no evidence of pneumothorax. No focal infiltrates are identified. IMPRESSION: Developing CHF. Dictated by Bryson Zurita MD @ Jan 17 2019 9:28AM Signed by Dr. Bryson Zurita @ Jan 17 2019 9:30AM
[2019-01-17] MEDS ORDERED: fentaNYL 50 MCG/ML SDV IVPUSH ONE (10:13)
[2019-01-17] MEDS ORDERED: Morphine 2 MG/ML Syringe IVPUSH ONE (10:54)
[2019-01-17] MEDS ORDERED: Ondansetron 4 MG/2 ML SDV IVPUSH PRN (11:39)
[2019-01-17] MEDS ORDERED: Hyoscyamine 0.125 MG Tab.SL SL PRN (11:39)
[2019-01-17] MEDS ORDERED: LORazepam Conc Solution 2 MG/ML 30 ML Bottle PO PRN (11:39)
--- NOTE | 2019-01-17 11:52 | PCM.HP.2 ---
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 Source of Information: Family, Old Records History Limitations: Reports: Altered Mental Status - History of Present Illness Initial Comments - Free Text/Narative: This 83 year old male with pmh of HTN and benign tremor presented from [facility] with complaints of severe weakness and confusion. Kalyan is confused and lethargic and unable to participate in interview. I spoke with , Linda. She reports in December she started seeing a rapid decline in health. She has been seeing [facility] Valles [facility] and was seen in the ED here December 24 and was transferred to [place] due to severity of illness and needs. According to records anemia was noted peripheral blood smear was obtained which revealed increased circulating myeloid lineage blasts, recommending hematology and oncology consultation. He was scheduled to see them here in [place] today. In the ED today no leukocytosis noted, RBC 2.09, hgb 6.0, HCT 18.5, platelets 43 ,000, neutrophils 37%. K+ 4.8 BUN 205, Cr 5.3. He was noted to be hypotensive, dyspneic and confused on arrival. CXR revealed cardiomegaly with suspected CHF. Dr Romero consulted for admission due to anemia. 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 We recommended palliative measures at this time due to poor prognosis. I spoke with PCP, Dr Rodriguez, who also discussed care with family in the ED. - Related Data Allergies/Adverse Reactions: Allergies Allergy/AdvReac Type Severity Reaction Status Date / Time No Known Allergies Allergy Verified 01/17/19 07:51 Home Medications: Home Meds Multivitamin [Multivitamins] 1 each PO DAILY 09/10/13 [History] Benazepril/Hydrochlorothiazide [Lotensin Hct 20-25 mg Tablet] 1 tab PO DAILY [History] amLODIPine Besylate [Amlodipine Besylate] 5 mg PO BEDTIME 02/17/15 [History] Metoprolol Succinate 50 mg PO BID 02/27/17 [History] Acetaminophen [Tylenol Arthritis Pain] 1 tab PO Q4HR PRN 01/17/19 [History] Furosemide [Lasix] 1 tab PO DAILY 01/17/19 [History] hydroCHLOROthiazide [Hydrochlorothiazide] 1 tab PO DAILY 01/17/19 [History] Past Medical History HEENT History: Reports: Cataract, Hard of Hearing Other HEENT History: wears glasses, has upper and lower partial dentures, has bilateral hearing aides Cardiovascular History: Reports: Hypertension. Denies: CAD Respiratory History: Reports: Sleep Apnea Other Respiratory History: does not use CPAP Gastrointestinal History: Reports: Colon Polyp Genitourinary History: Reports: Prostate Disorder Other Genitourinary History: phimosis, urinary leakage Musculoskeletal History: Reports: Back Pain, Chronic Other Musculoskeletal History: Disk problems to low back, Benign Tremors. gets cortisone shots Neurological History: Reports: Head Trauma, Other (See Below) Other Neuro History: Essential tremor, head injury as a child Psychiatric History: Reports: Depression Endocrine/Metabolic History: Reports: Obesity/BMI 30+. Denies: Diabetes, Type II Hematologic History: Reports: Anemia Immunologic History: Reports: None Oncologic (Cancer) History: Reports: Colon, Prostate Dermatologic History: Reports: Eczema Other Dermatologic History: Dry skin, sensitive skin - Infectious Disease History Infectious Disease History: Reports: Other (See Below) Other Infectious Disease History: pt unsure - Past Surgical History Head Surgeries/Procedures: Reports: None HEENT Surgical History: Reports: Cataract Surgery GI Surgical History: Reports: Colon, Colonoscopy, Small Bowel Male Surgical History: Reports: Prostatectomy, Vasectomy Other Male Surgeries/Procedures: hx radiation therapy for prostate cancer Other Oncologic Surgeries/Procedures: prostatectomy Social & Family History - Family History Family Medical History: Noncontributory - Tobacco Use Smoking Status *Q: Never Smoker - Caffeine Use Caffeine Use: Reports: Soda - Recreational Drug Use Recreational Drug Use: No - Living Situation & Occupation Living situation: Reports: , Extended Care Facility (recently was placed at [facility] due to declining condition) H&P Review of Systems - Review of Systems: Review Of Systems: Unable To Obtain (per , patient lethargic and confused) General: Reports: Weakness Pulmonary: Reports: Shortness of Breath Neurological: Reports: Confusion, Trouble Speaking, Difficulty Walking, Weakness Hematologic/Lymphatic: Reports: Anemia, Easy Bruising Exam - Exam Exam: See Below - Vital Signs Vital Signs: Last Vital Signs Temp 97.2 F 01/17/19 11:31 Pulse 74 01/17/19 11:31 Resp 22 H 01/17/19 11:31 BP 95/50 L 01/17/19 11:31 Pulse Ox 95 01/17/19 10:53 Weight: 131.542 kg - Exam General: Lethargic, Obtunded, Other (pallor, patient moaning in pain) HEENT: No: Mucosa Moist & [place] (pale) Lungs: Decreased Breath Sounds (bibasilar), Crackles Cardiovascular: Regular Rate, Regular Rhythm (distant heart sounds). No: Systolic Murmur GI/Abdominal Exam: Normal Bowel Sounds, Soft, Tender (patient opens eyes and grimaces with pain upon palpation) Back Exam: Normal Inspection, Full Range of Motion (noted grimacing and palpation of back) Extremities: Normal Inspection, Normal Range of Motion, Non-Tender. No: Normal Capillary Refill (extreme paleness with lengthened cap refill, no mottling noted.) Neuro Extensive - Mental Status: No: Alert, Oriented x3, Normal Mood/Affect Psychiatric: Other (obtunded). No: Normal Mood, Anxious, Agitated - Patient Data Lab Results Last 24 hrs: Laboratory Results - last 24 hr 01/17/19 01/17/19 01/17/19 Range/Units 08:20 08:20 08:20 WBC 8.74 (4.0-11.0) K/uL RBC 2.09 L (4.50-5.90) M/uL Hgb 6.0 L (13.0-17.0) g/dL Hct 18.5 L (38.0-50.0) % MCV 88.5 (80.0-98.0) fL MCH 28.7 (27.0-32.0) pg MCHC 32.4 (31.0-37.0) g/dL RDW Std Deviation 63.1 H (28.0-62.0) fl RDW Coeff of Jamie 20 H (11.0-15.0) % Plt Count 43 L (150-400) K/uL MPV 10.40 (7.40-12.00) fL Add Manual Diff YES Neutrophils % (Manual) 37 L (48.0-80.0) % Band Neutrophils % 7 % Lymphocytes % (Manual) 31 (16.0-40.0) % Monocytes % (Manual) 15 (0.0-15.0) % Metamyelocytes % 3 % Myelocytes % 1 % Blast Cells % 6 % Nucleated RBC % 0.0 /100WBC Absolute Seg Neuts 3.2 (1.4-5.7) Band Neutrophils # 0.6 Lymphocytes # (Manual) 2.7 H (0.6-2.4) Monocytes # (Manual) 1.3 H (0.0-0.8) Absolute Metamyelocyte 0.3 Absolute Myelocytes 0.1 Nucleated RBCs # 0 K/uL Absolute Blast Cells 0.5 Platelet Estimate DECREASED Lactate 1.4 (0.20-2.00) mmol/L Sodium 141 (136-148) mmol/L Potassium 4.8 (3.5-5.1) mmol/L Chloride 102 (98-107) mmol/L Carbon Dioxide 21.4 (21.0-32.0) mmol/L BUN 204 H (7.0-18.0) mg/dL Creatinine 5.3 H (0.8-1.3) mg/dL Est Cr Clr Drug Dosing TNP Estimated GFR (MDRD) 10.4 ml/min Glucose 161 H (74-106) mg/dL Calcium 8.6 (8.5-10.1) mg/dL Total Bilirubin 0.8 (0.2-1.0) mg/dL AST 39 H (15-37) IU/L ALT 18 (14-63) IU/L Alkaline Phosphatase 104 (46-116) U/L Total Protein 7.0 (6.4-8.2) g/dL Albumin 3.0 L (3.4-5.0) g/dL Globulin 4.0 (2.6-4.0) g/dL Albumin/Globulin Ratio 0.8 L (0.9-1.6) Blood Type Antibody Screen Crossmatch 01/17/19 Range/Units 09:16 WBC (4.0-11.0) K/uL RBC (4.50-5.90) M/uL Hgb (13.0-17.0) g/dL Hct (38.0-50.0) % MCV (80.0-98.0) fL MCH (27.0-32.0) pg MCHC (31.0-37.0) g/dL RDW Std Deviation (28.0-62.0) fl RDW Coeff of Jamie (11.0-15.0) % Plt Count (150-400) K/uL MPV (7.40-12.00) fL Add Manual Diff Neutrophils % (Manual) (48.0-80.0) % Band Neutrophils % % Lymphocytes % (Manual) (16.0-40.0) % Monocytes % (Manual) (0.0-15.0) % Metamyelocytes % % Myelocytes % % Blast Cells % % Nucleated RBC % /100WBC Absolute Seg Neuts (1.4-5.7) Band Neutrophils # Lymphocytes # (Manual) (0.6-2.4) Monocytes # (Manual) (0.0-0.8) Absolute Metamyelocyte Absolute Myelocytes Nucleated RBCs # K/uL Absolute Blast Cells Platelet Estimate Lactate (0.20-2.00) mmol/L Sodium (136-148) mmol/L Potassium (3.5-5.1) mmol/L Chloride (98-107) mmol/L Carbon Dioxide (21.0-32.0) mmol/L BUN (7.0-18.0) mg/dL Creatinine (0.8-1.3) mg/dL Est Cr Clr Drug Dosing Estimated GFR (MDRD) ml/min Glucose (74-106) mg/dL Calcium (8.5-10.1) mg/dL Total Bilirubin (0.2-1.0) mg/dL AST (15-37) IU/L ALT (14-63) IU/L Alkaline Phosphatase (46-116) U/L Total Protein (6.4-8.2) g/dL Albumin (3.4-5.0) g/dL Globulin (2.6-4.0) g/dL Albumin/Globulin Ratio (0.9-1.6) Blood Type O POSITIVE Antibody Screen NEGATIVE Crossmatch See Detail Result Diagrams: 01/17/19 08:20 01/17/19 08:20 - Problem List (1) Palliative care status SNOMED Code(s): 770554029 ICD Code: Z51.5 - ENCOUNTER FOR PALLIATIVE CARE Status: Acute Current Visit: Yes (2) Multisystem organ failure SNOMED Code(s): 48571412 ICD Code: LMG1984 - Status: Acute Current Visit: Yes (3) Acute respiratory failure with hypoxia SNOMED Code(s): 77880955, 692242494 ICD Code: J96.01 - ACUTE RESPIRATORY FAILURE WITH HYPOXIA Status: Acute Current Visit: Yes (4) Leukemia SNOMED Code(s): 28820501 ICD Code: C95.90 - LEUKEMIA, UNSPECIFIED NOT HAVING ACHIEVED REMISSION Status: Acute Current Visit: Yes Qualifiers: Leukemia type: unspecified (5) Anemia SNOMED Code(s): 261101117 ICD Code: D64.9 - ANEMIA, UNSPECIFIED Status: Acute Current Visit: Yes (6) Thrombocytopenia SNOMED Code(s): 665891888 ICD Code: D69.6 - THROMBOCYTOPENIA, UNSPECIFIED Status: Acute Current Visit: No (7) HTN (hypertension) SNOMED Code(s): 85636961 ICD Code: I10 - ESSENTIAL (PRIMARY) HYPERTENSION Status: Chronic Current Visit: Yes (8) History of colon cancer SNOMED Code(s): 527101085 ICD Code: Z85.038 - PERSONAL HISTORY OF MALIGNANT NEOPLASM OF LARGE INTESTINE Status: Chronic Current Visit: Yes (9) Hx of malignant neoplasm of prostate SNOMED Code(s): 840291202 ICD Code: Z85.46 - PERSONAL HISTORY OF MALIGNANT NEOPLASM OF PROSTATE Status: Chronic Current Visit: Yes (10) EDI (obstructive sleep apnea) SNOMED Code(s): 68124863 ICD Code: G47.33 - OBSTRUCTIVE SLEEP APNEA (ADULT) (PEDIATRIC) Status: Chronic Current Visit: Yes (11) BPH (benign prostatic hyperplasia) SNOMED Code(s): 464760478 ICD Code: N40.0 - BENIGN PROSTATIC HYPERPLASIA WITHOUT LOWER URINRY TRACT SYMP Status: Chronic Current Visit: Yes (12) Protein calorie malnutrition SNOMED Code(s): 430819016 ICD Code: E46 - UNSPECIFIED PROTEIN-CALORIE MALNUTRITION Status: Acute Current Visit: Yes Problem List Initiated/Reviewed/Updated: Yes Orders Last 24hrs: Active Orders 24 hr Category Date Time Status Patient Status [ADT] Stat ADT 01/17/19 09:19 Active Communication Order [RC] ROUTINE Care 01/17/19 11:47 Ordered EKG Documentation Completion [RC] STAT Care 01/17/19 08:01 Active Tracy Catheter Insertion [Insert Urinary Catheter] [OM. Care 01/17/19 12:00 Ordered PC] Q24H Oxygen Therapy [RC] PRN Care 01/17/19 11:39 Ordered Urinary Catheter Assessment [RC] ASDIRECTED Care 01/17/19 11:46 Ordered Regular Diet [DIET] Diet 01/17/19 Lunch Ordered CULTURE BLOOD [BC] Stat Lab 01/17/19 08:20 Received CULTURE BLOOD [BC] Stat Lab 01/17/19 08:35 Received RED BLOOD CELLS LP [BBK] Stat Lab 01/17/19 09:16 Results TYPE AND SCREEN [BBK] Stat Lab 01/17/19 09:16 Results Hyoscyamine [Hyomax-SL] Med 01/17/19 11:39 Ordered 0.125 mg SL Q4H PRN LORazepam [Ativan] Med 01/17/19 11:39 Ordered 1 mg PO Q4H PRN Morphine [Morphine 20 MG/ML Soln] Med 01/17/19 11:39 Ordered 5 mg SL Q1H PRN Ondansetron [Zofran] Med 01/17/19 11:39 Ordered 4 mg IVPUSH Q4H PRN Sodium Chloride 0.9% [Saline Flush] Med 01/17/19 08:01 Active 10 ml FLUSH ASDIRECTED PRN Sodium Chloride 0.9% [Saline Flush] Med 01/17/19 08:01 Active 2.5 ml FLUSH ASDIRECTED PRN Blood Culture x2 Reflex Set [OM.PC] Stat Oth 01/17/19 08:01 Ordered Comfort Measures [OM.PC] Routine Oth 01/17/19 11:46 Ordered Saline Lock Insert [OM.PC] Stat Oth 01/17/19 08:01 Ordered Resuscitation Status Routine Resus Stat 01/17/19 11:39 Ordered Medication Orders Hyoscyamine (Hyomax-Sl) 0.125 mg SL Q4H PRN PRN Reason: secretions Lorazepam (Ativan) 1 mg PO Q4H PRN PRN Reason: anxiety/agitation Morphine Sulfate (Morphine 20 Mg/Ml Soln) 5 mg SL Q1H PRN PRN Reason: pain/SOB/restlessness Ondansetron HCl (Zofran) 4 mg IVPUSH Q4H PRN PRN Reason: Nausea Sodium Chloride (Saline Flush) 10 ml FLUSH ASDIRECTED PRN PRN Reason: Keep Vein Open Last Admin: 01/17/19 08:42 Dose: 10 ml Sodium Chloride (Saline Flush) 2.5 ml FLUSH ASDIRECTED PRN PRN Reason: Keep Vein Open Last Admin: 01/17/19 08:42 Dose: 2.5 ml Assessment/Plan Comment:: This 83 year old male admitted for multisystem organ failure, 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 We will admit for observation. Hospice consult is in place and we will be working on return to [facility] tomorrow on Hospice. Currently, we will have Morphine and Ativan available PRN for pain, dyspnea or agitation. Hyomax SL for secretions PRN. Tracy catheter to be placed for comfort , discussed with family and they agree with this. - Mortality Measure Prognosis:: Poor <Koby Romero - Last Filed: 01/17/19 17:13> H&P History of Present Illness - General Admit Problem/Dx: Admission Diagnosis/Problem Admission Diagnosis/Problem Anemia I have examined the patient independently of Elizabeth Back CNP. I have discussed the case with her. I have reviewed and agree with the examination and plan as outlined by her. Please see orders. Exam - Vital Signs Vital Signs: Last Vital Signs Temp 36.2 C 01/17/19 11:31 Pulse 74 01/17/19 11:31 Resp 22 H 01/17/19 11:31 BP 95/50 L 01/17/19 11:31 Pulse Ox 95 01/17/19 10:53 - Patient Data Lab Results Last 24 hrs: Laboratory Results - last 24 hr 01/17/19 01/17/19 01/17/19 Range/Units 08:20 08:20 08:20 WBC 8.74 (4.0-11.0) K/uL RBC 2.09 L (4.50-5.90) M/uL Hgb 6.0 L (13.0-17.0) g/dL Hct 18.5 L (38.0-50.0) % MCV 88.5 (80.0-98.0) fL MCH 28.7 (27.0-32.0) pg MCHC 32.4 (31.0-37.0) g/dL RDW Std Deviation 63.1 H (28.0-62.0) fl RDW Coeff of Jamie 20 H (11.0-15.0) % Plt Count 43 L (150-400) K/uL MPV 10.40 (7.40-12.00) fL Add Manual Diff YES Neutrophils % (Manual) 37 L (48.0-80.0) % Band Neutrophils % 7 % Lymphocytes % (Manual) 31 (16.0-40.0) % Monocytes % (Manual) 15 (0.0-15.0) % Metamyelocytes % 3 % Myelocytes % 1 % Blast Cells % 6 % Nucleated RBC % 0.0 /100WBC Absolute Seg Neuts 3.2 (1.4-5.7) Band Neutrophils # 0.6 Lymphocytes # (Manual) 2.7 H (0.6-2.4) Monocytes # (Manual) 1.3 H (0.0-0.8) Absolute Metamyelocyte 0.3 Absolute Myelocytes 0.1 Nucleated RBCs # 0 K/uL Absolute Blast Cells 0.5 Platelet Estimate DECREASED Lactate 1.4 (0.20-2.00) mmol/L Sodium 141 (136-148) mmol/L Potassium 4.8 (3.5-5.1) mmol/L Chloride 102 (98-107) mmol/L Carbon Dioxide 21.4 (21.0-32.0) mmol/L BUN 204 H (7.0-18.0) mg/dL Creatinine 5.3 H (0.8-1.3) mg/dL Est Cr Clr Drug Dosing TNP Estimated GFR (MDRD) 10.4 ml/min Glucose 161 H (74-106) mg/dL Calcium 8.6 (8.5-10.1) mg/dL Total Bilirubin 0.8 (0.2-1.0) mg/dL AST 39 H (15-37) IU/L ALT 18 (14-63) IU/L Alkaline Phosphatase 104 (46-116) U/L Total Protein 7.0 (6.4-8.2) g/dL Albumin 3.0 L (3.4-5.0) g/dL Globulin 4.0 (2.6-4.0) g/dL Albumin/Globulin Ratio 0.8 L (0.9-1.6) Blood Type Antibody Screen Crossmatch 01/17/19 Range/Units 09:16 WBC (4.0-11.0) K/uL RBC (4.50-5.90) M/uL Hgb (13.0-17.0) g/dL Hct (38.0-50.0) % MCV (80.0-98.0) fL MCH (27.0-32.0) pg MCHC (31.0-37.0) g/dL RDW Std Deviation (28.0-62.0) fl RDW Coeff of Jamie (11.0-15.0) % Plt Count (150-400) K/uL MPV (7.40-12.00) fL Add Manual Diff Neutrophils % (Manual) (48.0-80.0) % Band Neutrophils % % Lymphocytes % (Manual) (16.0-40.0) % Monocytes % (Manual) (0.0-15.0) % Metamyelocytes % % Myelocytes % % Blast Cells % % Nucleated RBC % /100WBC Absolute Seg Neuts (1.4-5.7) Band Neutrophils # Lymphocytes # (Manual) (0.6-2.4) Monocytes # (Manual) (0.0-0.8) Absolute Metamyelocyte Absolute Myelocytes Nucleated RBCs # K/uL Absolute Blast Cells Platelet Estimate Lactate (0.20-2.00) mmol/L Sodium (136-148) mmol/L Potassium (3.5-5.1) mmol/L Chloride (98-107) mmol/L Carbon Dioxide (21.0-32.0) mmol/L BUN (7.0-18.0) mg/dL Creatinine (0.8-1.3) mg/dL Est Cr Clr Drug Dosing Estimated GFR (MDRD) ml/min Glucose (74-106) mg/dL Calcium (8.5-10.1) mg/dL Total Bilirubin (0.2-1.0) mg/dL AST (15-37) IU/L ALT (14-63) IU/L Alkaline Phosphatase (46-116) U/L Total Protein (6.4-8.2) g/dL Albumin (3.4-5.0) g/dL Globulin (2.6-4.0) g/dL Albumin/Globulin Ratio (0.9-1.6) Blood Type O POSITIVE Antibody Screen NEGATIVE Crossmatch See Detail Result Diagrams: 01/17/19 08:20 01/17/19 08:20 Orders Last 24hrs: Active Orders 24 hr Category Date Time Status Patient Status [ADT] Stat ADT 01/17/19 09:19 Active Communication Order [RC] ROUTINE Care 01/17/19 11:47 Active EKG Documentation Completion [RC] STAT Care 01/17/19 08:01 Active Tracy Catheter Insertion [Insert Urinary Catheter] [OM. Care 01/17/19 12:00 Ordered PC] Q24H Oxygen Therapy [RC] PRN Care 01/17/19 11:39 Active Urinary Catheter Assessment [RC] ASDIRECTED Care 01/17/19 11:46 Active Consult to Hospice [CONS] Routine Cons 01/17/19 12:09 Active Regular Diet [DIET] Diet 01/17/19 Lunch Active CULTURE BLOOD [BC] Stat Lab 01/17/19 08:20 Received CULTURE BLOOD [BC] Stat Lab 01/17/19 08:35 Received RED BLOOD CELLS LP [BBK] Stat Lab 01/17/19 09:16 Results TYPE AND SCREEN [BBK] Stat Lab 01/17/19 09:16 Results Hyoscyamine [Hyomax-SL] Med 01/17/19 11:39 Active 0.125 mg SL Q4H PRN LORazepam [Ativan] Med 01/17/19 11:39 Active 1 mg PO Q4H PRN Morphine Med 01/17/19 12:06 Active 4 mg IVPUSH Q2H PRN Morphine [Morphine 10 MG/0.5 ML Oral Syringe] Med 01/17/19 11:39 Active 5 mg SL Q1H PRN Ondansetron [Zofran] Med 01/17/19 11:39 Active 4 mg IVPUSH Q4H PRN Sodium Chloride 0.9% [Saline Flush] Med 01/17/19 08:01 Active 10 ml FLUSH ASDIRECTED PRN Sodium Chloride 0.9% [Saline Flush] Med 01/17/19 08:01 Active 2.5 ml FLUSH ASDIRECTED PRN Blood Culture x2 Reflex Set [OM.PC] Stat Oth 01/17/19 08:01 Ordered Comfort Measures [OM.PC] Routine Oth 01/17/19 11:46 Ordered Saline Lock Insert [OM.PC] Stat Oth 01/17/19 08:01 Ordered Resuscitation Status Routine Resus Stat 01/17/19 11:39 Ordered Medication Orders Hyoscyamine (Hyomax-Sl) 0.125 mg SL Q4H PRN PRN Reason: secretions Lorazepam (Ativan) 1 mg PO Q4H PRN PRN Reason: anxiety/agitation Morphine Sulfate (Morphine 10 Mg/0.5 Ml Oral Syringe) 5 mg SL Q1H PRN PRN Reason: pain/SOB/restlessness Last Admin: 01/17/19 15:13 Dose: 5 mg Morphine Sulfate (Morphine) 4 mg IVPUSH Q2H PRN PRN Reason: severe pain, agitation Last Admin: 01/17/19 12:59 Dose: 4 mg Ondansetron HCl (Zofran) 4 mg IVPUSH Q4H PRN PRN Reason: Nausea Sodium Chloride (Saline Flush) 10 ml FLUSH ASDIRECTED PRN PRN Reason: Keep Vein Open Last Admin: 01/17/19 08:42 Dose: 10 ml Sodium Chloride (Saline Flush) 2.5 ml FLUSH ASDIRECTED PRN PRN Reason: Keep Vein Open Last Admin: 01/17/19 08:42 Dose: 2.5 ml
[2019-01-17] MEDS ORDERED: Morphine 4 MG/ML Syringe IVPUSH PRN (12:06)
[2019-01-17] MEDS: Morphine 10 MG/0.5 ML Oral Syringe SL PRN (15:13)
[2019-01-18] MEDS: Morphine 10 MG/0.5 ML Oral Syringe SL PRN ×5 (00:17→11:03)
[2019-01-18 07:47] VITALS: BP 107/51
--- NOTE | 2019-01-18 08:28 | PCM.DCSUM1 ---
<Elizabeth Back - Last Filed: 01/18/19 08:29> Discharge Summary - Hospital Course Brief History: This 83 year old male with pmh of HTN and benign tremor presented from [facility] with complaints of severe weakness and confusion. Kalyan is confused and lethargic and unable to participate in interview. I spoke with , Linda. She reports in December she started seeing a rapid decline in health. She has been seeing Dr Valles at the [place] and was seen in the ED here December 24 and was transferred to [place] due to severity of illness and needs. According to records anemia was noted peripheral blood smear was obtained which revealed increased circulating myeloid lineage blasts, recommending hematology and oncology consultation. He was scheduled to see them here in [place] today. In the ED today no leukocytosis noted, RBC 2.09, hgb 6.0, HCT 18.5, platelets 43,000, neutrophils 37%. K+ 4.8 BUN 205, Cr 5.3. He was noted to be hypotensive, dyspneic and confused on arrival. CXR revealed cardiomegaly with suspected CHF. Dr Romero consulted for admission due to anemia. 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 We recommended palliative measures at this time due to poor prognosis. I spoke with PCP, Dr Rodriguez, who also discussed care with family in the ED. Diagnosis: Stroke: No - Discharge Data Discharge Date: 01/18/19 Discharge Disposition: DC/Tfer to SNF 03 Condition: Poor - Discharge Diagnosis/Problem(s) (1) Palliative care status SNOMED Code(s): 948916159 ICD Code: Z51.5 - ENCOUNTER FOR PALLIATIVE CARE Status: Acute Current Visit: Yes (2) Multisystem organ failure SNOMED Code(s): 98593617 ICD Code: [id number] - Status: Acute Current Visit: Yes (3) Acute respiratory failure with hypoxia SNOMED Code(s): 54221107, 151339852 ICD Code: J96.01 - ACUTE RESPIRATORY FAILURE WITH HYPOXIA Status: Acute Current Visit: Yes (4) Leukemia SNOMED Code(s): 64833581 ICD Code: C95.90 - LEUKEMIA, UNSPECIFIED NOT HAVING ACHIEVED REMISSION Status: Acute Current Visit: Yes Qualifiers: Leukemia type: unspecified (5) Anemia SNOMED Code(s): 070488825 ICD Code: D64.9 - ANEMIA, UNSPECIFIED Status: Acute Current Visit: Yes Qualifiers: Anemia type: unspecified type Qualified Code(s): D64.9 - Anemia, unspecified (6) Thrombocytopenia SNOMED Code(s): 665544654 ICD Code: D69.6 - THROMBOCYTOPENIA, UNSPECIFIED Status: Acute Current Visit: No (7) HTN (hypertension) SNOMED Code(s): 39817404 ICD Code: I10 - ESSENTIAL (PRIMARY) HYPERTENSION Status: Chronic Current Visit: Yes (8) History of colon cancer SNOMED Code(s): 536011074 ICD Code: Z85.038 - PERSONAL HISTORY OF MALIGNANT NEOPLASM OF LARGE INTESTINE Status: Chronic Current Visit: Yes (9) Hx of malignant neoplasm of prostate SNOMED Code(s): 184624797 ICD Code: Z85.46 - PERSONAL HISTORY OF MALIGNANT NEOPLASM OF PROSTATE Status: Chronic Current Visit: Yes (10) EDI (obstructive sleep apnea) SNOMED Code(s): 32827349 ICD Code: G47.33 - OBSTRUCTIVE SLEEP APNEA (ADULT) (PEDIATRIC) Status: Chronic Current Visit: Yes (11) BPH (benign prostatic hyperplasia) SNOMED Code(s): 850520898 ICD Code: N40.0 - BENIGN PROSTATIC HYPERPLASIA WITHOUT LOWER URINRY TRACT SYMP Status: Chronic Current Visit: Yes (12) Protein calorie malnutrition SNOMED Code(s): 225305137 ICD Code: E46 - UNSPECIFIED PROTEIN-CALORIE MALNUTRITION Status: Acute Current Visit: Yes - Patient Summary/Data Consults: Consultations 01/17/19 12:09 Consult to Hospice [CONS] Routine - Patient Instructions Diet: Regular Diet as Tolerated Activity: As Tolerated Other/Special Instructions: Hospice to admit at [facility] for end of life. - Discharge Plan *PRESCRIPTION DRUG MONITORING PROGRAM REVIEWED*: Not Applicable *COPY OF PRESCRIPTION DRUG MONITORING REPORT IN PATIENT FAITH: Not Applicable Home Medications: Home Meds Hyoscyamine [Hyomax-SL] 0.125 mg SL Q4H PRN tab.sl 01/18/19 [Rx] LORazepam [Ativan] 1 mg PO Q4H PRN ml 01/18/19 [Rx] Morphine [Morphine 10 MG/0.5 ML Oral Syringe] 5 mg SL Q1H PRN syringe 01/18/19 [Rx] Oxygen Therapy Mode: Nasal Cannula Oxygen Flow Rate (L/min): 2 (only for comfort) Referrals: Allen Mckeon MD [Primary Care Provider] - (Will be seen on next [facility] rounds) - Discharge Summary/Plan Comment DC Time >30 min.: No Discharge Summary/Plan Comment: Admitting Diagnoses: Multisystem organ failure Suspected Leukemia Acute respiratory failure with hypoxia Palliative Care Discharge Diagnoses: Palliative Care Hospice Multisystem organ failure Suspected Leukemia Acute respiratory failure with hypoxia Mansoor was admitted observation for palliative care measures. Hospice was consulted and family decided this would be the best option after talking with the Hospitalist team and Dr Rodriguez regarding his currently poor prognosis. He was given SL Morphine and Ativan overnight as needed for pain. Tracy catheter was placed for comfort, which is draining very dark concentrated urine. He will be transferred to [facility] this morning via EMS. Linda at bedside, no questions at this time. I will fax H/P and DC summary to [facility] PCP, Dr Mckeon. Hospice to admit upon transfer to [facility]. - General Info Date of Service: 01/18/19 Admission Dx/Problem (Free Text: Admission Diagnosis/Problem Admission Diagnosis/Problem Anemia Subjective Update: Lethargic and unresponsive. at bedside. Appears dyspneic and slightly in pain, receiving Morphine SL. - Patient Data Vitals - Most Recent: Last Vital Signs Temp 97.7 F 01/18/19 07:46 Pulse 84 01/18/19 07:46 Resp 22 H 01/18/19 07:46 BP 107/51 L 01/18/19 07:46 Pulse Ox 94 L 01/18/19 07:46 Weight - Most Recent: 131.542 kg I&O - Last 24 hours: Intake & Output 01/17/19 01/18/19 01/18/19 22:59 06:59 14:59 Intake Total 0 0 Output Total 1460 100 Balance -1460 -100 Lab Results - Last 24 hrs: Laboratory Results - last 24 hr 01/17/19 01/17/19 01/17/19 Range/Units 08:20 08:20 08:20 WBC 8.74 (4.0-11.0) K/uL RBC 2.09 L (4.50-5.90) M/uL Hgb 6.0 L (13.0-17.0) g/dL Hct 18.5 L (38.0-50.0) % MCV 88.5 (80.0-98.0) fL MCH 28.7 (27.0-32.0) pg MCHC 32.4 (31.0-37.0) g/dL RDW Std Deviation 63.1 H (28.0-62.0) fl RDW Coeff of Jamie 20 H (11.0-15.0) % Plt Count 43 L (150-400) K/uL MPV 10.40 (7.40-12.00) fL Add Manual Diff YES Neutrophils % (Manual) 37 L (48.0-80.0) % Band Neutrophils % 7 % Lymphocytes % (Manual) 31 (16.0-40.0) % Monocytes % (Manual) 15 (0.0-15.0) % Metamyelocytes % 3 % Myelocytes % 1 % Blast Cells % 6 % Nucleated RBC % 0.0 /100WBC Absolute Seg Neuts 3.2 (1.4-5.7) Band Neutrophils # 0.6 Lymphocytes # (Manual) 2.7 H (0.6-2.4) Monocytes # (Manual) 1.3 H (0.0-0.8) Absolute Metamyelocyte 0.3 Absolute Myelocytes 0.1 Nucleated RBCs # 0 K/uL Absolute Blast Cells 0.5 Platelet Estimate DECREASED Lactate 1.4 (0.20-2.00) mmol/L Sodium 141 (136-148) mmol/L Potassium 4.8 (3.5-5.1) mmol/L Chloride 102 (98-107) mmol/L Carbon Dioxide 21.4 (21.0-32.0) mmol/L BUN 204 H (7.0-18.0) mg/dL Creatinine 5.3 H (0.8-1.3) mg/dL Est Cr Clr Drug Dosing TNP Estimated GFR (MDRD) 10.4 ml/min Glucose 161 H (74-106) mg/dL Calcium 8.6 (8.5-10.1) mg/dL Total Bilirubin 0.8 (0.2-1.0) mg/dL AST 39 H (15-37) IU/L ALT 18 (14-63) IU/L Alkaline Phosphatase 104 (46-116) U/L Total Protein 7.0 (6.4-8.2) g/dL Albumin 3.0 L (3.4-5.0) g/dL Globulin 4.0 (2.6-4.0) g/dL Albumin/Globulin Ratio 0.8 L (0.9-1.6) Blood Type Antibody Screen Crossmatch 01/17/19 Range/Units 09:16 WBC (4.0-11.0) K/uL RBC (4.50-5.90) M/uL Hgb (13.0-17.0) g/dL Hct (38.0-50.0) % MCV (80.0-98.0) fL MCH (27.0-32.0) pg MCHC (31.0-37.0) g/dL RDW Std Deviation (28.0-62.0) fl RDW Coeff of Jamie (11.0-15.0) % Plt Count (150-400) K/uL MPV (7.40-12.00) fL Add Manual Diff Neutrophils % (Manual) (48.0-80.0) % Band Neutrophils % % Lymphocytes % (Manual) (16.0-40.0) % Monocytes % (Manual) (0.0-15.0) % Metamyelocytes % % Myelocytes % % Blast Cells % % Nucleated RBC % /100WBC Absolute Seg Neuts (1.4-5.7) Band Neutrophils # Lymphocytes # (Manual) (0.6-2.4) Monocytes # (Manual) (0.0-0.8) Absolute Metamyelocyte Absolute Myelocytes Nucleated RBCs # K/uL Absolute Blast Cells Platelet Estimate Lactate (0.20-2.00) mmol/L Sodium (136-148) mmol/L Potassium (3.5-5.1) mmol/L Chloride (98-107) mmol/L Carbon Dioxide (21.0-32.0) mmol/L BUN (7.0-18.0) mg/dL Creatinine (0.8-1.3) mg/dL Est Cr Clr Drug Dosing Estimated GFR (MDRD) ml/min Glucose (74-106) mg/dL Calcium (8.5-10.1) mg/dL Total Bilirubin (0.2-1.0) mg/dL AST (15-37) IU/L ALT (14-63) IU/L Alkaline Phosphatase (46-116) U/L Total Protein (6.4-8.2) g/dL Albumin (3.4-5.0) g/dL Globulin (2.6-4.0) g/dL Albumin/Globulin Ratio (0.9-1.6) Blood Type O POSITIVE Antibody Screen NEGATIVE Crossmatch See Detail GINO Results - Last 24 hrs: Microbiology 01/17/19 08:20 Aerobic Blood Culture - Preliminary Blood - Venous NO GROWTH AFTER 1 DAY Anaerobic Blood Culture - Preliminary NO GROWTH AFTER 1 DAY Med Orders - Current: Current Medications Hyoscyamine (Hyomax-Sl) 0.125 mg SL Q4H PRN PRN Reason: secretions Lorazepam (Ativan) 1 mg PO Q4H PRN PRN Reason: anxiety/agitation Morphine Sulfate (Morphine 10 Mg/0.5 Ml Oral Syringe) 5 mg SL Q1H PRN PRN Reason: pain/SOB/restlessness Last Admin: 01/18/19 08:14 Dose: 5 mg Morphine Sulfate (Morphine) 4 mg IVPUSH Q2H PRN PRN Reason: severe pain, agitation Last Admin: 01/17/19 12:59 Dose: 4 mg Ondansetron HCl (Zofran) 4 mg IVPUSH Q4H PRN PRN Reason: Nausea Sodium Chloride (Saline Flush) 10 ml FLUSH ASDIRECTED PRN PRN Reason: Keep Vein Open Last Admin: 01/17/19 08:42 Dose: 10 ml Sodium Chloride (Saline Flush) 2.5 ml FLUSH ASDIRECTED PRN PRN Reason: Keep Vein Open Last Admin: 01/17/19 08:42 Dose: 2.5 ml Discontinued Medications Fentanyl (Sublimaze) 25 mcg IVPUSH ONETIME ONE Stop: 01/17/19 08:11 Last Admin: 01/17/19 08:41 Dose: 25 mcg Fentanyl (Fentanyl) 25 mcg IVPUSH ONETIME ONE Stop: 01/17/19 10:14 Last Admin: 01/17/19 10:21 Dose: Not Given Fentanyl (Sublimaze) 25 mcg IVPUSH ONETIME ONE Stop: 01/17/19 10:17 Last Admin: 01/17/19 10:20 Dose: 25 mcg Sodium Chloride (Normal Saline) 1,000 mls @ 999 mls/hr IV .Bolus ONE Stop: 01/17/19 09:08 Last Admin: 01/17/19 08:13 Dose: 999 mls/hr Morphine Sulfate (Morphine) 2 mg IVPUSH ONETIME ONE Stop: 01/17/19 10:55 Last Admin: 01/17/19 11:03 Dose: 2 mg Ondansetron HCl (Zofran) 4 mg IVPUSH ONETIME ONE Stop: 01/17/19 08:11 Last Admin: 01/17/19 08:41 Dose: 4 mg - Exam General: Reports: Lethargic, Obtunded (Unresponsive) Lungs: Denies: Normal Respiratory Effort (dyspnea) <Koby Romero - Last Filed: 01/18/19 09:24> Discharge Summary - Hospital Course HPI Initial Comments: I have examined the patient independently of Elizabeth Back CNP. I have discussed the case with her. I have reviewed and agree with the examination and plan as outlined by her. Please see orders. - Patient Summary/Data Consults: Consultations 01/17/19 12:09 Consult to Hospice [CONS] Routine - Patient Data Vitals - Most Recent: Last Vital Signs Temp 36.5 C 01/18/19 07:46 Pulse 84 01/18/19 07:46 Resp 22 H 01/18/19 07:46 BP 107/51 L 01/18/19 07:46 Pulse Ox 94 L 01/18/19 07:46 I&O - Last 24 hours: Intake & Output 01/17/19 01/18/19 01/18/19 22:59 06:59 14:59 Intake Total 0 0 Output Total 1460 100 Balance -1460 -100 Lab Results - Last 24 hrs: Laboratory Results - last 24 hr 01/17/19 Range/Units 09:16 Blood Type O POSITIVE Antibody Screen NEGATIVE Crossmatch See Detail GINO Results - Last 24 hrs: Microbiology 01/17/19 08:35 Aerobic Blood Culture - Preliminary Blood - Venous - Lab Draw NO GROWTH AFTER 1 DAY Anaerobic Blood Culture - Preliminary NO GROWTH AFTER 1 DAY 01/17/19 08:20 Aerobic Blood Culture - Preliminary Blood - Venous NO GROWTH AFTER 1 DAY Anaerobic Blood Culture - Preliminary NO GROWTH AFTER 1 DAY Med Orders - Current: Current Medications Hyoscyamine (Hyomax-Sl) 0.125 mg SL Q4H PRN PRN Reason: secretions Lorazepam (Ativan) 1 mg PO Q4H PRN PRN Reason: anxiety/agitation Morphine Sulfate (Morphine 10 Mg/0.5 Ml Oral Syringe) 5 mg SL Q1H PRN PRN Reason: pain/SOB/restlessness Last Admin: 01/18/19 08:14 Dose: 5 mg Morphine Sulfate (Morphine) 4 mg IVPUSH Q2H PRN PRN Reason: severe pain, agitation Last Admin: 01/17/19 12:59 Dose: 4 mg Ondansetron HCl (Zofran) 4 mg IVPUSH Q4H PRN PRN Reason: Nausea Sodium Chloride (Saline Flush) 10 ml FLUSH ASDIRECTED PRN PRN Reason: Keep Vein Open Last Admin: 01/17/19 08:42 Dose: 10 ml Sodium Chloride (Saline Flush) 2.5 ml FLUSH ASDIRECTED PRN PRN Reason: Keep Vein Open Last Admin: 01/17/19 08:42 Dose: 2.5 ml Discontinued Medications Fentanyl (Sublimaze) 25 mcg IVPUSH ONETIME ONE Stop: 01/17/19 08:11 Last Admin: 01/17/19 08:41 Dose: 25 mcg Fentanyl (Fentanyl) 25 mcg IVPUSH ONETIME ONE Stop: 01/17/19 10:14 Last Admin: 01/17/19 10:21 Dose: Not Given Fentanyl (Sublimaze) 25 mcg IVPUSH ONETIME ONE Stop: 01/17/19 10:17 Last Admin: 01/17/19 10:20 Dose: 25 mcg Sodium Chloride (Normal Saline) 1,000 mls @ 999 mls/hr IV .Bolus ONE Stop: 01/17/19 09:08 Last Admin: 01/17/19 08:13 Dose: 999 mls/hr Morphine Sulfate (Morphine) 2 mg IVPUSH ONETIME ONE Stop: 01/17/19 10:55 Last Admin: 01/17/19 11:03 Dose: 2 mg Ondansetron HCl (Zofran) 4 mg IVPUSH ONETIME ONE Stop: 01/17/19 08:11 Last Admin: 01/17/19 08:41 Dose: 4 mg
== END 2019-01-18 11:08 ==
LOC: MW.ED 07:46 → MW.MS 09:19
PROVIDERS: ADMIT Internal Medicine; ATTEND Internal Medicine
DX: Z51.5 Encounter for palliative care (principal); D64.9 Anemia, unspecified; I11.9 Hypertensive heart disease without heart failure; J96.01 Acute respiratory failure with hypoxia; C95.90 Leukemia, unspecified not having achieved remission; D69.6 Thrombocytopenia, unspecified; E46 Unspecified protein-calorie malnutrition; G47.33 Obstructive sleep apnea (adult) (pediatric); N40.0 Benign prostatic hyperplasia without lower urinary tract symptoms; Z86.010 Personal history of colon polyps; Z85.46 Personal history of malignant neoplasm of prostate; Z79.899 Other long term (current) drug therapy
CPT/HCPCS: 36415; 51702; 71045; 80053; 83605; 85025; 87040; 93005; 96361; 96374; 96375; 96376; 99285; G0378; J2270; J2405; J3010; J7040; 99284